=== PATIENT | male | born 1965 | race Caucasian/White ===

== ENCOUNTER 2018-11-13 20:47 | Emergency (ER) | payer OTHER ==
[2018-11-13] MEDS: AZITHROMYCIN 500 MG TAB PO (21:46)
[2018-11-13] MEDS: CEFTRIAXONE 250 MG INJ IM (21:47)
[2018-11-13 21:56] LABS: ADD UMIC NO; UR ASCORBIC ACID NEGATIVE (NEGATIVE); UR BILIRUBIN (Dip) NEGATIVE (NEGATIVE); UR BLOOD (Dip) NEGATIVE (NEGATIVE); UR CLARITY CLEAR (CLEAR); UR COLOR COLORLESS (YELLOW); UR GLUCOSE (Dip) NEGATIVE (NEGATIVE); UR KETONES (Dip) NEGATIVE (NEGATIVE); UR LEUKOCYTE ESTERASE (Dip) NEGATIVE Leu/ul (NEGATIVE); UR NITRITE (Dip) NEGATIVE (NEGATIVE); UR SPECIFIC GRAVITY (Dip) 1.002 (1.003-1.030); UR TOTAL PROTEIN (Dip) NEGATIVE (NEGATIVE); UR UROBILINOGEN (Dip) NEGATIVE (NEGATIVE)
== END 2018-11-13 22:30 | disposition home or self-care (01) ==
LOC: FTE 20:47
DX: R30.0 Dysuria (principal); L98.9 Disorder of the skin and subcutaneous tissue, unspecified
CPT/HCPCS: 81003; 87086; 96372; 99284-25